=== PATIENT | female | born 2000 | race Two or more races ===

== ENCOUNTER 2022-04-29 19:53 | Emergency (ER) | payer OTHER ==
[~2022-04-29] VITALS: Ht 162.6 cm; Wt 65.8 kg
[2022-04-29 20:42] VITALS: BP 119/59
--- NOTE | 2022-04-29 20:49 | NUR ---
Patient taken to bed 3 via wheelchair.
[2022-04-29] MEDS ORDERED: KETOROLAC 60 MG/2 ML VIAL IM ONE (21:00)
--- NOTE | 2022-04-29 21:00 | NUR ---
Received patient to ER w/ c/o lower back pain s/p lifting "heavy boxes filled w/ [employer]" yesterday while at work. Patient w/ no neuro focal deficits noted. Denies any urinary or fecal incontinence. Introduced self to patient, positioned patient for comfort. bed to low position sr up, continue to monitor.
--- NOTE | 2022-04-29 21:08 | NUR ---
MD Crook at bedside
--- NOTE | 2022-04-29 21:17 | NUR ---
Patient medicated as ordered w/ toradol 60mg im to left upper. Will observe patient for any adverse reaction. Bed to low position sr up, continue to monitor.
[2022-04-29] MEDS ORDERED: MORPHINE SULFATE 2 MG/ML SYR ONE ×2 (21:33→21:39)
[2022-04-29] MEDS ORDERED: MORPHINE SULFATE 4 MG/ML SYR IM ONE (21:35)
[2022-04-29] MEDS ORDERED: ACET-8905 PO (21:40)
[2022-04-29] MEDS ORDERED: IBUP-2213 PO (21:40)
--- NOTE | 2022-04-29 21:43 | NUR ---
patient medicated as ordered w/ 4mg of morphine im to left deltoid 2nd to still c/o pain even after being medicated w/ toradol. Will observe for any adverse reaction. bed to low position sr up, continue to monitor.
[2022-04-29 22:26] VITALS: BP 106/70
--- NOTE | 2022-04-29 22:26 | NUR ---
Patient discharged with v/s stable. Written and verbal after care instructions given and explained. Patient alert, oriented and verbalized understanding of instructions. Ambulatory with to car. All questions addressed prior to discharge. ID band removed. Patient advised to follow up with PMD. Rx of norco and ibuprofen given. Patient educated on indication of medication including possible reaction and side effects. Opportunity to ask questions provided and answered. patient denies any adverse reaction to medication. states "feels better 4/10".
== END 2022-04-29 22:26 | disposition home or self-care (01) ==
LOC: MED 19:53
DX: M54.50 Low back pain, unspecified (principal)
CPT/HCPCS: 81025; 96372; 99284; J1885; J2270